=== PATIENT | male | born 1970 | race American Indian/Alaskan Native ===

== ENCOUNTER 2021-04-12 10:29 | Emergency (ER) | payer OTHER, MEDICARE ==
--- NOTE | 2021-04-12 11:02 | Emergency Department Report ---
HPI - General Time Seen by Provider: 04/12/21 10:30 - HPI HPI: This is a 50-year-old -[place] female presents to the emergency department via EMS from home with complaint of waking up this morning with slurred speech. Last known well time was about 11 PM last night. The patient does have a history of a previous stroke from 1 year ago that caused weakness, dysphagia. The patient is currently a poor historian and information has been obtained by EMS. Apparently the patient's is in route from home and may be able to provide further information. The patient also has a past medical history of G6PD, insulin-dependent diabetes, hypertension. He presents wearing a diaper and a indwelling Guerra catheter. I later spoke with the patient's , who is now at bedside. She says that the patient has had some increased slurred speech, slow speech, and some increased issues with dysphagia to the point where it seemed like he was having difficulty swallowing his own secretions. The patient usually eats with thickened feeds. Patient has both a indwelling Guerra catheter and a suprapubic catheter. He has being evaluated by his urologist, at [facility], and has an appointment on April 20 to have a different suprapubic catheter placed. 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 The patient has had 6 different strokes, with the most recent stroke being about 1 year ago. He is not currently on any blood thinners but was previously on Eliquis. He is on Plavix. Last known well time was somewhere around 11 AM yesterday. His says that he was having some of the issues with slow speech and dysphagia last night. The slurred speech worsened this morning. ED Review of Systems ROS: Stated complaint: POSSS STROKE Other details as noted in HPI Comment: All other systems reviewed and negative Constitutional: denies: chills, fever Eyes: denies: eye pain, vision change ENT: denies: ear pain, throat pain Respiratory: denies: cough, shortness of breath Cardiovascular: denies: chest pain, palpitations Gastrointestinal: denies: abdominal pain, vomiting Genitourinary: denies: dysuria, discharge Musculoskeletal: denies: back pain, arthralgia Skin: denies: rash, lesions Neurological: other (Dysarthria, dysphagia). denies: headache Physical Exam - Physical Exam Physical Exam: GENERAL: The patient is well-developed well-nourished. HENT: Normocephalic. Atraumatic. Patient has moist mucous membranes. EYES: Extraocular motions are intact. Pupils equal reactive to light bilaterally. NECK: Supple. Trachea is midline. CHEST/LUNGS: Clear to auscultation. There is no respiratory distress noted. HEART/CARDIOVASCULAR: Regular. There is no tachycardia. There is no murmur. ABDOMEN: Abdomen is soft, nontender. Patient has normal bowel sounds. Obese h abitus. SKIN: Skin is warm and dry. NEURO: The patient is awake, alert, and cooperative. Moderate dysarthria. There is some mild right-sided nasolabial fold paresis. No upper extremity drift bilaterally. Mild bilateral lower extremity drift. MUSCULOSKELETAL: There is no tenderness or deformity. ED Course - Consultations Consultation #1: 04/12/21 13:45 I spoke with the neurologist on-call for [facility], Dr. Us, who has accepted the patient for transfer based on the family's request for continuity of care. ED Medical Decision Making - Lab Data Result diagrams: 04/12/21 11:36 04/12/21 11:36 Lab Results 04/12/21 04/12/21 04/12/21 Range/Units 11:36 11:36 11:36 WBC 11.8 H (4.5-11.0) K/mm3 RBC 4.63 (3.65-5.03) M/mm3 Hgb 11.6 L (11.8-15.2) gm/dl Hct 36.7 (35.5-45.6) % MCV 79 L (84-94) fl MCH 25 L (28-32) pg MCHC 32 (32-34) % RDW 23.3 H (13.2-15.2) % Plt Count 255 (140-440) K/mm3 Lymph % (Auto) 14.4 (13.4-35.0) % [place] % (Auto) 8.7 H (0.0-7.3) % Eos % (Auto) 5.2 H (0.0-4.3) % Baso % (Auto) 0.6 (0.0-1.8) % Lymph # (Auto) 1.7 (1.2-5.4) K/mm3 [place] # (Auto) 1.0 H (0.0-0.8) K/mm3 Eos # (Auto) 0.6 H (0.0-0.4) K/mm3 Baso # (Auto) 0.1 (0.0-0.1) K/mm3 Seg Neutrophils % 71.1 H (40.0-70.0) % Seg Neutrophils # 8.4 H (1.8-7.7) K/mm3 PT 13.9 (12.2-14.9) Sec. INR 1.01 (0.87-1.13) APTT 29.7 (24.2-36.6) Sec. Thrombin Time 18.0 (15.1-19.6) Sec. Sodium 137 (137-145) mmol/L Potassium 3.3 L (3.6-5.0) mmol/L Chloride 99.3 (98-107) mmol/L Carbon Dioxide 30 (22-30) mmol/L Anion Gap 11 mmol/L BUN 19 (9-20) mg/dL Creatinine 1.1 (0.8-1.3) mg/dL Estimated GFR > 60 ml/min BUN/Creatinine Ratio 17 % Glucose 171 H (75-100) mg/dL POC Glucose (70-105) mg/dL Calcium 9.2 (8.4-10.2) mg/dL Total Bilirubin 0.30 (0.1-1.2) mg/dL AST 14 (5-40) units/L ALT 13 (7-56) units/L Alkaline Phosphatase 95 (35-129) units/L Ammonia (25-60) umol/L Total Creatine Kinase 50 L (55-170) units/L CK-MB (CK-2) 1.3 (0.0-4.0) ng/mL CK-MB (CK-2) Rel Index 2.6 (0-4) Troponin T 0.013 (0.00-0.029) ng/mL Total Protein 7.1 (6.3-8.2) g/dL Albumin 3.4 L (3.9-5) g/dL Albumin/Globulin Ratio 0.9 % TSH (0.270-4.200) mlU/mL Urine Color (Yellow) Urine Turbidity (Clear) Urine pH (5.0-7.0) Ur Specific [place] (1.003-1.030) Urine Protein (Negative) mg/dL Urine Glucose (UA) (Negative) mg/dL Urine Ketones (Negative) mg/dL Urine Blood (Negative) Urine Nitrite (Negative) Urine Bilirubin (Negative) Urine Urobilinogen (<2.0) mg/dL Ur Leukocyte Esterase (Negative) Urine WBC (Auto) (0.0-6.0) /HPF Urine RBC (Auto) (0.0-6.0) /HPF Plasma/Serum Alcohol (0-0.07) % 04/12/21 04/12/21 04/12/21 Range/Units 11:36 11:36 11:36 WBC (4.5-11.0) K/mm3 RBC (3.65-5.03) M/mm3 Hgb (11.8-15.2) gm/dl Hct (35.5-45.6) % MCV (84-94) fl MCH (28-32) pg MCHC (32-34) % RDW (13.2-15.2) % Plt Count (140-440) K/mm3 Lymph % (Auto) (13.4-35.0) % [place] % (Auto) (0.0-7.3) % Eos % (Auto) (0.0-4.3) % Baso % (Auto) (0.0-1.8) % Lymph # (Auto) (1.2-5.4) K/mm3 [place] # (Auto) (0.0-0.8) K/mm3 Eos # (Auto) (0.0-0.4) K/mm3 Baso # (Auto) (0.0-0.1) K/mm3 Seg Neutrophils % (40.0-70.0) % Seg Neutrophils # (1.8-7.7) K/mm3 PT (12.2-14.9) Sec. INR (0.87-1.13) APTT (24.2-36.6) Sec. Thrombin Time (15.1-19.6) Sec. Sodium (137-145) mmol/L Potassium (3.6-5.0) mmol/L Chloride (98-107) mmol/L Carbon Dioxide (22-30) mmol/L Anion Gap mmol/L BUN (9-20) mg/dL Creatinine (0.8-1.3) mg/dL Estimated GFR ml/min BUN/Creatinine Ratio % Glucose (75-100) mg/dL POC Glucose (70-105) mg/dL Calcium (8.4-10.2) mg/dL Total Bilirubin (0.1-1.2) mg/dL AST (5-40) units/L ALT (7-56) units/L Alkaline Phosphatase (35-129) units/L Ammonia 31.0 (25-60) umol/L Total Creatine Kinase (55-170) units/L CK-MB (CK-2) (0.0-4.0) ng/mL CK-MB (CK-2) Rel Index (0-4) Troponin T (0.00-0.029) ng/mL Total Protein (6.3-8.2) g/dL Albumin (3.9-5) g/dL Albumin/Globulin Ratio % TSH 1.770 (0.270-4.200) mlU/mL Urine Color (Yellow) Urine Turbidity (Clear) Urine pH (5.0-7.0) Ur Specific [place] (1.003-1.030) Urine Protein (Negative) mg/dL Urine Glucose (UA) (Negative) mg/dL Urine Ketones (Negative) mg/dL Urine Blood (Negative) Urine Nitrite (Negative) Urine Bilirubin (Negative) Urine Urobilinogen (<2.0) mg/dL Ur Leukocyte Esterase (Negative) Urine WBC (Auto) (0.0-6.0) /HPF Urine RBC (Auto) (0.0-6.0) /HPF Plasma/Serum Alcohol < 0.01 (0-0.07) % 04/12/21 04/12/21 Range/Units 12:00 18:05 WBC (4.5-11.0) K/mm3 RBC (3.65-5.03) M/mm3 Hgb (11.8-15.2) gm/dl Hct (35.5-45.6) % MCV (84-94) fl MCH (28-32) pg MCHC (32-34) % RDW (13.2-15.2) % Plt Count (140-440) K/mm3 Lymph % (Auto) (13.4-35.0) % [place] % (Auto) (0.0-7.3) % Eos % (Auto) (0.0-4.3) % Baso % (Auto) (0.0-1.8) % Lymph # (Auto) (1.2-5.4) K/mm3 [place] # (Auto) (0.0-0.8) K/mm3 Eos # (Auto) (0.0-0.4) K/mm3 Baso # (Auto) (0.0-0.1) K/mm3 Seg Neutrophils % (40.0-70.0) % Seg Neutrophils # (1.8-7.7) K/mm3 PT (12.2-14.9) Sec. INR (0.87-1.13) APTT (24.2-36.6) Sec. Thrombin Time (15.1-19.6) Sec. Sodium (137-145) mmol/L Potassium (3.6-5.0) mmol/L Chloride (98-107) mmol/L Carbon Dioxide (22-30) mmol/L Anion Gap mmol/L BUN (9-20) mg/dL Creatinine (0.8-1.3) mg/dL Estimated GFR ml/min BUN/Creatinine Ratio % Glucose (75-100) mg/dL POC Glucose 105 (70-105) mg/dL Calcium (8.4-10.2) mg/dL Total Bilirubin (0.1-1.2) mg/dL AST (5-40) units/L ALT (7-56) units/L Alkaline Phosphatase (35-129) units/L Ammonia (25-60) umol/L Total Creatine Kinase (55-170) units/L CK-MB (CK-2) (0.0-4.0) ng/mL CK-MB (CK-2) Rel Index (0-4) Troponin T (0.00-0.029) ng/mL Total Protein (6.3-8.2) g/dL Albumin (3.9-5) g/dL Albumin/Globulin Ratio % TSH (0.270-4.200) mlU/mL Urine Color Straw (Yellow) Urine Turbidity Clear (Clear) Urine pH 6.0 (5.0-7.0) Ur Specific [place] 1.040 H (1.003-1.030) Urine Protein 100 mg/dl (Negative) mg/dL Urine Glucose (UA) Neg (Negative) mg/dL Urine Ketones Neg (Negative) mg/dL Urine Blood Sm (Negative) Urine Nitrite Neg (Negative) Urine Bilirubin Neg (Negative) Urine Urobilinogen < 2.0 (<2.0) mg/dL Ur Leukocyte Esterase Neg (Negative) Urine WBC (Auto) 1.0 (0.0-6.0) /HPF Urine RBC (Auto) 3.0 (0.0-6.0) /HPF Plasma/Serum Alcohol (0-0.07) % - EKG Data -: EKG Interpreted by Hi EKG shows normal: sinus rhythm, axis, intervals, QRS complexes (Q waves to the inferior leads), ST-T waves (Nonspecific ST T waves) Rate: normal - EKG Data When compared to previous EKG there are: previous EKG unavailable Interpretation: other (Sinus rhythm at 77 bpm, normal axis, normal intervals, Q waves to the inferior leads. Nonspecific ST T waves. No ST elevation [place].) - Radiology Data Radiology results: report reviewed CT head/brain wo con INDICATION / CLINICAL INFORMATION: 50 years Male; CODE STROKE CALL ER MAIN AT 8199 Stroke symptoms. TECHNIQUE: Routine CT head without contrast. All CT scans at this location are performed using CT dose reduction for ALARA by means of automated exposure control. COMPARISON: None. FINDINGS: BRAIN / INTRACRANIAL CONTENTS: Small lacunar infarcts seen in the ganglio capsular regions, some of which are age-indeterminate without diffusion imaging by MRI. Otherwise, no acute hemorrhage, mass effect, midline shift, hydrocephalus, or acute, large territorial infarct. Mild, diffuse cerebral and cerebellar atrophy. There are moderate to marked, somewhat confluent areas of decreased attenuation in the white matter of the cerebral hemispheres, as well as the gangliocapsular regions. These are nonspecific findings and may be related to microangiopathy (hypertension, diabetes, atherosclerosis), given the patient's age. 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 CRANIOCERVICAL JUNCTION: No significant abnormality. ORBITS: No significant abnormality of visualized orbits. SINUSES / MASTOIDS: Mild to moderate mucosal thickening seen in the ethmoids. There is partial opacification of the mastoid air cells on the left. No coalescence of air cells seen. ADDITIONAL FINDINGS: Atherosclerotic disease is seen in the anterior and posterior circulation. Subcutaneous, presumed sebaceous cyst seen superficial left occipital bone. IMPRESSION: 1. No focal mass, hemorrhage, hydrocephalus, or acute, large territorial infarct. Follow-up with diffusion imaging by MRI, as clinically warranted. 2. Sinus disease as described above. CT angio head INDICATION / CLINICAL INFORMATION: 50 years Male; CVA OMNI 350 100 ML. TECHNIQUE: Thin cut axial images obtained through the head during IV bolus contrast administration. Sagittal, coronal, and 3 plane MIP reconstructions performed by the technologist. NASCET type criteria used evaluate stenoses. Automated exposure control utilized for radiation reduction purposes. COMPARISON: None available. FINDINGS: Again noted are multiple small lacunar- type infarcts in the gangliocapsular regions, including the thalami. Some of these findings are age-indeterminate without diffusion imaging by MRI. INTERNAL CAROTID ARTERIES: No significant narrowing appreciated. Mild atherosclerotic disease noted. VERTEBROBASILAR SYSTEM: No significant narrowing appreciated. DISTAL BRANCHES: Distal branches of the anterior, middle, and posterior cerebral arteries are fairly symmetric in appearance and number. ANEURYSM: None iden tified. ADDITIONAL FINDINGS: Moderate mucosal thickening seen in the ethmoids. There is opacification of the left mastoid region with air-fluid levels noted. No coalescence of air cells seen. IMPRESSION: 1. No significant abnormality on this CTA of the head. 2. Small, age-indeterminate lacunar infarcts seen in the gangliocapsular regions. Follow-up with diffusion imaging by MRI, as clinically warranted. 3. Sinus disease noted. CT angio neck INDICATION / CLINICAL INFORMATION: 50 years Male; CVA OMNI 350 100 ML. TECHNIQUE: Thin cut axial images obtained through the head during IV bolus contrast administration. Sagittal, coronal, and 3 plane MIP reconstructions performed by the technologist. NASCET type criteria used evaluate stenoses. All CT scans at this location are performed using CT dose reduction for ALARA by means of automated exposure control. COMPARISON: None available. FINDINGS: ARCH: Normal aortic arch branching suggested. CAROTID ARTERIES: The visualized common and internal carotid arteries are widely patent. Mild atherosclerotic disease is seen at the origin the right internal carotid artery. VERTEBRAL ARTERIES: Right dominant vertebral system seen. No significant stenosis appreciated. ADDITIONAL FINDINGS: Cysts/nodules seen in the left thyroid lobe measuring 15 mm in maximum dimension. Thyroid gland is normal in size. Mild to moderate mucosal thickening seen in the ethmoids. There is near complete opacification of the mastoid air c ells on the left, with air-fluid levels noted. No coalescence of air cells seen. Air-fluid level seen in the esophagus. This may suggest a history of reflux. Please clinically correlate. IMPRESSION: 1. No significant stenosis appreciated on this CTA of the neck. 2. Left thyroid lobe cyst/nodule, as described above. - Medical Decision Making This patient presented to the emergency department as a code stroke after he developed some increased dysphagia last night and some dysarthria this morning. Patient was seen by the telemedicine neurologist who gave the patient an NIH stroke scale of 9. Some of the deficits are chronic, however, with the patient's history of CVA x6. Patient is outside of the window for TPA. CT scan of the head without contrast did not show any hemorrhage, large vessel occlusion, or any other acute process. CT angiography of the head and neck did not show any thrombus, occlusion, or significant stenosis. Patient's labs are mostly unremarkable including CBC, metabolic panel, blood alcohol level, urinalysis, thyroid function. The patient requested transfer to [facility] for continuity of care as he sees primary care, urology, neurology and heme-onc through the [facility] system. The patient was accepted for transfer and we are awaiting a bed assignment and transport. Critical Care Time: Yes Critical care time in (mins) excluding proc time.: 35 Critical care attestation.: If time is entered above; I have spent that time in minutes in the direct care of this critically ill patient, excluding procedure time. Critical care time was spent on this patient in doing his initial evaluation, multiple reevaluations, ordering and interpretation of labs and imaging, discussion with the telemedicine neurologist, discussion with the accepting neurologist for transfer, multiple discussions with the patient. Critical Care Time: 35 minutes ED Disposition Clinical Impression: CVA (cerebral vascular accident) Qualifiers: CVA mechanism: unspecified Qualified Code(s): I63.9 - Cerebral infarction, unspecified Hypertension Qualifiers: Hypertension type: primary hypertension Qualified Code(s): I10 - Essential (primary) hypertension Disposition: DC/TX-70 ANOTHER TYPE HLTHCARE Is pt being admited?: No Condition: Fair Instructions: Hypertension (ED) Time of Disposition: 18:33
--- NOTE | 2021-04-12 11:05 | Cat Scan Report ---
CT head/brain wo con INDICATION / CLINICAL INFORMATION: 50 years Male; CODE STROKE CALL ER MAIN AT 8199 Stroke symptoms. TECHNIQUE: Routine CT head without contrast. All CT scans at this location are performed using CT dos e reduction for ALARA by means of automated exposure control. COMPARISON: None. FINDINGS: BRAIN / INTRACRANIAL CONTENTS: Small lacunar infarcts seen in the gangliocapsular regions, some of wh ich are age-indeterminate without diffusion imaging by MRI. Otherwise, no acute hemorrhage, mass effect, midline shift, hydrocephalus, or acute, large territori al infarct. Mild, diffuse cerebral and cerebellar atrophy. There are moderate to marked, somewhat confluent areas of decreased attenuation in the white matter o f the cerebral hemispheres, as well as the gangliocapsular regions. These are nonspecific findings an d may be related to microangiopathy (hypertension, diabetes, atherosclerosis), given the patient's ag e. 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 CRANIOCERVICAL JUNCTION: No significant abnormality. ORBITS: No significant abnormality of visualized orbits. SINUSES / MASTOIDS: Mild to moderate mucosal thickening seen in the ethmoids. There is partial opacif ication of the mastoid air cells on the left. No coalescence of air cells seen. ADDITIONAL FINDINGS: Atherosclerotic disease is seen in the anterior and posterior circulation. Subcutaneous, presumed sebaceous cyst seen superficial left occipital bone. IMPRESSION: 1. No focal mass, hemorrhage, hydrocephalus, or acute, large territorial infarct. Follow-up with diff usion imaging by MRI, as clinically warranted. 2. Sinus disease as described above. CODE STROKE: Exam Completed (STOVE FITTER/CDT): 04/12/2021 9:53 AM Central time Exam Reviewed (STOVE FITTER/CDT): 9:59 AM Time of Communication (STOVE FITTER/CDT): 10:01 AM Licensed Practitioner Receiving Report: Dr. Stewart Signer Name: Gavin Adame MD, III Signed: 04/12/2021 11:01 AM Workstation Name: [id number]
--- NOTE | 2021-04-12 11:52 | Cat Scan Report ---
CT angio head INDICATION / CLINICAL INFORMATION: 50 years Male; CVA OMNI 350 100 ML. TECHNIQUE: Thin cut axial images obtained through the head during IV bolus contrast administration. S agittal, coronal, and 3 plane MIP reconstructions performed by the technologist. NASCET type criteria used evaluate stenoses. Automated exposure control utilized for radiation reduction purposes. COMPARISON: None available. FINDINGS: Again noted are multiple small lacunar-type infarcts in the gangliocapsular regions, including the th jag. Some of these findings are age-indeterminate without diffusion imaging by MRI. INTERNAL CAROTID ARTERIES: No significant narrowing appreciated. Mild atherosclerotic disease noted. VERTEBROBASILAR SYSTEM: No significant narrowing appreciated. DISTAL BRANCHES: Distal branches of the anterior, middle, and posterior cerebral arteries are fairly symmetric in appearance and number. ANEURYSM: None identified. ADDITIONAL FINDINGS: Moderate mucosal thickening seen in the ethmoids. There is opacification of the left mastoid region with air-fluid levels noted. No coalescence of air cells seen. IMPRESSION: 1. No significant abnormality on this CTA of the head. 2. Small, age-indeterminate lacunar infarcts seen in the gangliocapsular regions. Follow-up with diff usion imaging by MRI, as clinically warranted. 3. Sinus disease noted. Signer Name: Gavin Adame MD, III Signed: 04/12/2021 11:48 AM Workstation Name: [id number]
[2021-04-12 11:56] LABS: Basophils # (Auto) 0.1 K/mm3 (0.0-0.1); Basophils % (Auto) 0.6 % (0.0-1.8); Eosinophils # (Auto) 0.6 K/mm3 (0.0-0.4); Eosinophils % (Auto) 5.2 % (0.0-4.3); Hematocrit 36.7 % (35.5-45.6); Hemoglobin 11.6 gm/dl (11.8-15.2); Lymphocytes # (Auto) 1.7 K/mm3 (1.2-5.4); Lymphocytes % (Auto) 14.4 % (13.4-35.0); Mean Corpuscular HGB Conc 32 % (32-34); Mean Corpuscular Volume 79 fl (84-94); Monocytes % (Auto) 8.7 % (0.0-7.3); Platelet Count 255 K/mm3 (140-440); Red Blood Count 4.63 M/mm3 (3.65-5.03)
--- NOTE | 2021-04-12 12:01 | Cat Scan Report ---
CT angio neck INDICATION / CLINICAL INFORMATION: 50 years Male; CVA OMNI 350 100 ML. TECHNIQUE: Thin cut axial images obtained through the head during IV bolus contrast administration. S agittal, coronal, and 3 plane MIP reconstructions performed by the technologist. NASCET type criteria used evaluate stenoses. All CT scans at this location are performed using CT dose reduction for ALAR A by means of automated exposure control. COMPARISON: None available. FINDINGS: ARCH: Normal aortic arch branching suggested. CAROTID ARTERIES: The visualized common and internal carotid arteries are widely patent. Mild atheros clerotic disease is seen at the origin the right internal carotid artery. VERTEBRAL ARTERIES: Right dominant vertebral system seen. No significant stenosis appreciated. ADDITIONAL FINDINGS: Cysts/nodules seen in the left thyroid lobe measuring 15 mm in maximum dimension . Thyroid gland is normal in size. Mild to moderate mucosal thickening seen in the ethmoids. There is near complete opacification of the mastoid air cells on the left, with air-fluid levels noted. No coalescence of air cells seen. Air-fluid level seen in the esophagus. This may suggest a history of reflux. Please clinically correl ate. IMPRESSION: 1. No significant stenosis appreciated on this CTA of the neck. 2. Left thyroid lobe cyst/nodule, as described above. INCIDENTAL THYROID NODULE RECOMMENDATION RECOMMENDATION: Dedicated thyroid ultrasound. Nonpalpable nodules detected on US or other anatomic imaging studies are termed incidentally discover ed nodules or incidentalomas. Nonpalpable nodules have the same risk of malignancy as palpable nodule s with the same size. Generally, only nodules >1 cm should be evaluated, since they have a greater po tential to be clinically significant cancers. (JESSICA, 2009). Follow up for incidental thyroid nodules <1 cm is not recommended. Diagnostic thyroid ultrasound is recommended only if the patient meets the following criteria: (1) < 35 years of age with normal life expectancy and nodule >= 1 cm. (2) >= 35 years of age with normal life expectancy and nodule >= 1.5 cm. ACR Ultrasound for incidental thyroid nodules: [email or web address] Signer Name: Gavin Adame MD, III Signed: 04/12/2021 11:57 AM Workstation Name: [id number]
[2021-04-12 12:08] LABS: Creatine Kinase MB 1.3 ng/mL (0.0-4.0)
[2021-04-12 12:09] LABS: Alanine Aminotransferase 13 units/L (7-56); Albumin 3.4 g/dL (3.9-5); BUN/Creatinine Ratio 17; Blood Urea Nitrogen 19 mg/dL (9-20); Calcium 9.2 mg/dL (8.4-10.2); Hemolysis Index 5
--- NOTE | 2021-04-12 12:10 | Consultation ---
History of Present Illness - Reason for Consult Consult date: 04/12/21 - History of Present Illness [facility] Consult Note # Demographics Consult Type: Acute Stroke Level 2 (4.5-24 hrs) Patient Location: Emergency Room First Name: Zaheer Last Name: Julia Date of : 1970 Age: 50 Gender: Male Time of Initial Page ( Time): 04/12/2021, 11:37 Time of Return Call ( Time): 04/12/2021, 11:39 # HPI History: 50yo man who was having issues with swallowing that was worse than his baseline. Last night, he was having increased issues with handling his secretions. This morning, he was coughing and had increased slurred speech. His last stroke was in May. # Scores Time of exam and NIHSS (): 04/12/2021, 11:49 Level of Consciousness 1a: [1] = Not alert; but arousable by minor stim LOC Questions 1b: [0] = Answers both questions correctly LOC Commands 1c: [0] = Performs both tasks correctly Best Gaze 2: [0] = Normal Visual 3: [0] = No visual loss Facial Palsy 4: [1] = Minor paralysis Motor Arm Left 5a: [0] = No drift Motor Arm Right 5b: [0] = No drift Motor Leg Left 6a: [2] = Some effort against gravity Motor Leg Right 6b: [2] = Some effort against gravity Limb Ataxia 7: [0] = Absent Sensory 8: [0] = Normal Best Language 9: [1] = [id number] aphasia Dysarthria 10: [2] = Severe dysarthria Extinction and Inattention 11: [0] = No abnormality NIHSS Total: 9 # Exam Vitals: vital signs reviewed # PMH-FH-SH Past Medical History: stroke Medications: aspirin plavix # Assessment Impression: Ischemic Stroke (Acute) # Plan Thrombolytic/Intervention: NOT IV Thrombolysis or IA Intervention candidate Thrombolytic Exclusion: > 4.5 hours Intraarterial Exclusion: clinically consistent with small vessel disease Target Blood Pressure: SBP < 220 Labs: ESR lipid panel Imaging: (urgency: routine): CT Angiogram Head and CT Angiogram Neck MRI Brain without contrast Diagnostic Test: echo with bubble study Therapy/Evaluation: NPO until swallow evaluation PT/OT evaluation speech/swallow consultation Medication: aspirin 81 mg daily clopidogrel (Plavix) 75 mg daily DVT Prophylaxis: SCD chemical DVT prophylaxis Other: permissive hypertension telemetry monitoring I have discussed my recommendations with the referring provider Disposition: admit Medications and Allergies Allergies Allergy/AdvReac Type Severity Reaction Status Date / Time No Known Allergies Allergy Verified 04/12/21 10:32 Results - Labs CBC & Chem 7: 04/12/21 11:36 04/12/21 11:36 Labs: Abnormal lab results 04/12/21 Range/Units 11:36 [place] % (Auto) 8.7 H (0.0-7.3) % Eos % (Auto) 5.2 H (0.0-4.3) % [place] # (Auto) 1.0 H (0.0-0.8) K/mm3 Eos # (Auto) 0.6 H (0.0-0.4) K/mm3 Seg Neutrophils % 71.1 H (40.0-70.0) % Seg Neutrophils # 8.4 H (1.8-7.7) K/mm3
[2021-04-12 12:18] LABS: Red Cell Distribution Width 23.3 % (13.2-15.2)
[2021-04-12 12:19] LABS: INR 1.01 (0.87-1.13)
[2021-04-12 12:20] LABS: Partial Thromboplastin Time 29.7 Sec. (24.2-36.6)
[2021-04-12 13:18] LABS: Bilirubin,Urine NEG (Negative); Blood,Urine SM (Negative); Color,Urine Straw (Yellow); Urobilinogen,Urine < 2.0 mg/dL (<2.0)
[2021-04-12] MEDS ORDERED: SODIUM CHLORIDE 0.9% 500 ML 500 ML IV ONE (13:32)
[2021-04-12] MEDS ORDERED: ACETAMINOPHEN 325 MG TAB PO PRN (23:00)
--- NOTE | 2021-04-13 10:20 | Electrocardiograph Report ---
[facility] Test Date: 2021-04-12 Test Time: 11:55:59 Pat Name: FAHAD ROQUE Department: Room: Gender: M [facility] Special[facility] 1970 Requested By: NINFA RAY Order Number: [id number] Reading MD: Carter Burks Measurements Intervals Paul Rate: 77 P: 50 OK: 160 QRS: 11 QRSD: 97 T: -10 QT: 389 QTc: 440 Interpretive Statements Sinus rhythm Inferior infarct, old Consider anterior infarct No previous ECG available for comparison Electronically Signed On 04-13-2021 10:19:54 EDT by Carter Burks
[2021-04-13] MEDS ORDERED: SODIUM CHLORIDE 0.9% 1000 ML 1,000 ML ONE (11:18)
[2021-04-13 18:21] VITALS: BP 120/58
== END 2021-04-14 00:07 | disposition other institution (70) ==
LOC: ED 10:29
DX: I63.9 Cerebral infarction, unspecified (principal); I10 Essential (primary) hypertension
CPT/HCPCS: 36415; 70450; 70496; 70498; 80053; 81001; 82140; 82550; 82553; 82962; 84443; 84484; 85025; 85610; 85670; 85730; 93005; 96360; 96361; 99285; J7030; J7040; Q9967; 80320; G0480